=== PATIENT | female | born 1955 | race Caucasian/White ===

== ENCOUNTER → 2018-10-02 16:08 | Outpatient (CLI) | payer OTHER, SELFPAY ==
--- NOTE | 2018-10-02 | DI.CT.S_ITS ---
PROCEDURE: CT LUMBAR SPINE WO CON INDICATIONS: SPINAL STENOSIS OF THE LUMBAR REGION WITH NEUROGEN TECHNIQUE: Noncontrast 3 mm thick sections acquired from the T12 level to the sacrum. Sagittal and coronal reformats were constructed. For radiation dose reduction, the following was used: automated exposure control. COMPARISON: None. FINDINGS: Image quality: Excellent. Bones: There is mild levoscoliosis centered at L2-3 level. No acute vertebral body compression fractures. Vertebral body heights are well-preserved. Decreased intervertebral disc space and degenerative endplate changes are noted throughout lumbar spine. No suspicious lytic or blastic bony lesions. Central spinal caliber is of normal overall caliber. No pars defects. T12-L1: Unremarkable. L1-L2: Significant decreased intervertebral disc space is seen with prominent anterior and dorsal osteophyte formation. There is suggestion of diffuse disc bulge and bilateral facet arthrosis with mild central canal stenosis, no significant neuroforaminal narrowing. L2-L3: Diffuse disc bulge and bilateral facet arthrosis is seen with mild central canal stenosis, no significant neural foramina narrowing. L3-L4: Broad-based disc bulge and bilateral facet arthrosis is seen with mild to moderate central canal stenosis and mild bilateral neuroforaminal narrowing. L4-L5: There is broad-based disc bulge and bilateral facet arthrosis with hypertrophy of ligamentum flavum causing moderate to severe central canal stenosis and left worst than right bilateral neuroforaminal narrowing. L5-S1: There is broad-based disc bulge and bilateral facet arthrosis with mild central canal stenosis and right sided neuroforaminal narrowing. Soft tissues: No retroperitoneal masses or hematomas. Visualized aorta is normal in caliber. IMPRESSION: 1. Mild levoscoliosis centered at L2-3 level. No compression fracture or spondylolisthesis. No suspicious bony lesion. 2. Degenerative disc bulge and bilateral facet arthrosis throughout lumbar spine causing [id number] central canal stenosis and bilateral neuroforaminal narrowing most prominent at L4-5 level as described above. Dictated by: Marek Mccrary M.D. on 10/02/2018 at 16:58 Approved by: Marek Mccrary M.D. on 10/02/2018 at 17:02
== END ==
PROVIDERS: PCP Family Medicine; Visit Provider Orthopaedic Surgery
DX: M48.062 Spinal stenosis, lumbar region with neurogenic claudication (principal); M41.86 Other forms of scoliosis, lumbar region; M51.36 Other intervertebral disc degeneration, lumbar region; M48.07 Spinal stenosis, lumbosacral region; M47.816 Spondylosis without myelopathy or radiculopathy, lumbar region; M47.817 Spondylosis without myelopathy or radiculopathy, lumbosacral region
CPT/HCPCS: 72131

== ENCOUNTER → 2022-01-01 11:24 | Outpatient (CLI) | payer OTHER, SELFPAY ==
[2022-01-01 12:25] LABS: COVID19 -Nasal RAPID Negative (Negative)
== END ==
PROVIDERS: PCP Family Medicine; Visit Provider Family Medicine Sleep Medicine
DX: Z20.822 Contact with and (suspected) exposure to COVID-19 (principal)
CPT/HCPCS: 87635; C9803

== ENCOUNTER 2022-01-04 06:32 | Day surgery (SDC) | payer OTHER, SELFPAY ==
[2022-01-04 07:06] VITALS: BP 132/80; PULSE 66; RESP 16; TEMP 36.9; O2SAT 96; BMI 28.8
[2022-01-04] MEDS: SODIUM CHLORIDE 0.9% 1,000 ML 84 ML IV (07:38)
--- NOTE | 2022-01-04 07:56 | PM.HP.1 ---
History of Present Illness History of Present Illness Date Patient Seen: 01/04/22 Time Patient Seen: 07:56 Chief complaint: SDC Narrative: I reviewed my recent office note. No changes. Patient History Medical History Atrial fibrillation and flutter Melanoma Pacemaker Surgical History H/O: hysterectomy Hx of lymph node biopsy Family & Social History Social History: household members spouse Tobacco & Substance use: Smoking Status Never smoker alcohol intake current alcohol intake frequency a few times a month Substance Use Type does not use Meds Home Medications and Allergies Home Medications Medication Instructions Recorded Confirmed Type diltiazem HCl 180 mg 180 mg PO DAILY 01/01/22 01/04/22 History capsule,extended release 24 hr flecainide 100 mg tablet 100 mg PO BID 01/01/22 01/04/22 History fluoxetine 10 mg capsule 20 mg PO DAILY 01/01/22 01/04/22 History rivaroxaban 20 mg tablet (Xarelto) 20 mg PO DAILY 01/01/22 01/04/22 History simvastatin 20 mg tablet 20 mg PO DAILY 01/01/22 01/04/22 History Allergies Allergy/AdvReac Type Severity Reaction Status Date / Time No Known Drug Allergies Allergy Verified 01/04/22 07:00 Review of Systems Review of Systems ROS: Yes All systems reviewed with the patient and are negative except as otherwise documented Exam Vital Signs (past 8 hours): - 01/04/22 07:06 Temperature 98.5 F Pulse Rate 66 Respiratory Rate 16 Blood Pressure 132/80 Pulse Oximetry 96 Oxygen Delivery Method Room Air Const General: cooperative and comfortable Orientation: alert HENDE Head: normocephalic Ears: external ears normal Nose: external nose normal Face and sinus: normal facial exam Mouth: oral mucosae normal Eyes General: appearance normal, both eyes and all related structures Neck Neck: normal visual inspection Chest Chest: normal inspection of the chest Resp Effort & Inspection: normal respiratory effort Cardio Rate: regular rate GI Inspection: normal to inspection Skin General: no rashes or lesions noted and No jaundice Neuro General: patient alert and moves all extremities Cognition: normal cognition Speech: speech normal Extrem General: no pedal edema Psych Appearance: grossly normal Assessment & Plan Assessment & Plan narrative: 66-year-old female the personal history of colon polyps. She has been off her Xarelto for 5-6 days. Colonoscopy is planned for today. Time Spent With Patient Critical Care time: I spent a total of [] minutes of critical care time on this patient's care today; this time is exclusive of procedural time.
--- NOTE | 2022-01-04 07:57 | PM.PREOP ---
Pre-operative Note COVID-19 COVID-19 status: Negative Result date/Date tested (Pos, Neg/Pending): 01/01/22 Criteria for continued procedure: Possibility delay results in more complex future surgery or treatment Interval Note History & Physical reviewed/Exam performed by Physician: Yes Changes to H&P: No ASA Class (for procedural sedation): II
--- NOTE | 2022-01-04 08:11 | SUR.OPER ---
CECUM AT 0809
--- NOTE | 2022-01-04 08:19 | PM.OP.COLON ---
Operative Date/Time/Diagnoses Date of procedure: 01/04/22 Time of procedure: 08:19 Pre-op diagnosis: Personal history of colon polyps Post-op diagnosis: same Procedure & Clinicians Study performed: Colonoscopy Same procedure as scheduled: Yes Indications: Colon polyps history Surgeon: Gabriel Escamilla Procedure Notes SCOAP/Timeout: Done Procedure in detail: After the risks and benefits were explained, written and verbal informed consent was obtained. The patient was brought into the procedure room and placed into the left lateral decubitus position. Please see nurse glass lathe operator notes for sedation details. Digital rectal examination was accomplished. The scope was introduced into the patient and advanced under direct visualization to the cecum as identified by the appendiceal orifice and ileocecal valve. The scope was slowly withdrawn to carefully examine the mucosa for any defects or lesions. Comprehensive imaging was accomplished throughout the rectum including the dentate line. The colon was decompressed, the scope was then removed from the patient who tolerated the procedure well. Pediatric colonoscope Bowel prep adequate Scope withdrawal time: 9 minutes Sedation minutes: 20 Specimen(s): none sent Complications: none Impression: Mild scant diverticulosis was noted in the sigmoid. Grade 1 internal hemorrhoids were noted. No significant polyps mass lesions or inflammatory features identified throughout. Endoscopic diagnosis 1. Diverticulosis 2. Grade 1 hemorrhoids Post-procedure Plan for aftercare: Repeat colonoscopy in 5-7 years considering personal history of colon polyps. Disposition: PACU
[2022-01-04 08:22] VITALS: BP 99/64; PULSE 61; RESP 16; TEMP 36.6; O2SAT 98
[2022-01-04 08:27] VITALS: BP 106/62; PULSE 60; RESP 16; O2SAT 98
[2022-01-04 08:32] VITALS: BP 109/63; PULSE 60; RESP 16; O2SAT 96
[2022-01-04 08:38] VITALS: BP 99/65; PULSE 62; RESP 18; TEMP 36.4; O2SAT 99
== END 2022-01-04 08:49 | disposition home or self-care (01) ==
PROVIDERS: PCP Family Medicine; Referring Provider Internal Medicine Gastroenterology; Visit Provider Internal Medicine Gastroenterology
PROC: 0DJD8ZZ Inspection of Lower Intestinal Tract, Via Natural or Artificial Opening Endoscopic (ICD-10-PCS; CPT 45378; principal; 2022-01-04 08:00)
DX: Z12.11 Encounter for screening for malignant neoplasm of colon (principal); Z86.010 Personal history of colon polyps; Z95.0 Presence of cardiac pacemaker; I48.91 Unspecified atrial fibrillation; K64.0 First degree hemorrhoids; K57.30 Diverticulosis of large intestine without perforation or abscess without bleeding
CPT/HCPCS: 45378; J2704

== ENCOUNTER → 2022-11-09 09:20 | Outpatient (CLI) | payer OTHER, SELFPAY ==
[2022-11-09 10:49] LABS: BUN Creatinine Ratio 12.2 (6-22); Blood Urea Nitrogen 9 mg/dL (7-17); Calcium 8.9 mg/dL (8.4-10.2); Carbon Dioxide 30 mmol/L (22-32); Chloride 100 mmol/L (98-107); Estimated Glomerular Filt Rate > 60 mL/min (>60); Glucose 87 mg/dL (80-110); HEMOLYSIS < 15 (0-50); Magnesium 2.2 mg/dL (1.6-2.3); Potassium 4.6 mmol/L (3.4-5.1); Sodium 137 mmol/L (137-145)
[2022-11-09 11:16] LABS: Thyroid Stimulating Hormone 1.59 uIU/mL (0.47-4.68)
[2022-11-10 21:44] LABS: Tissue Transglutaminase IgA <2 U/mL (0-3); Tissue Transglutaminase IgG 5 U/mL (0-5)
== END ==
PROVIDERS: PCP Family Medicine; Referring Provider Internal Medicine Gastroenterology; Visit Provider Internal Medicine Gastroenterology
DX: K59.00 Constipation, unspecified (principal)
CPT/HCPCS: 36415; 80048; 83516; 83735; 84443

== ENCOUNTER 2023-05-04 20:45 | Emergency (ER) | payer OTHER, SELFPAY ==
[2023-05-04] VITALS (8 sets, daily range): BP systolic 124–143; BP diastolic 73–84; PULSE 59–67; RESP 18; TEMP 36.3; O2SAT 95–99; BMI 29.7
--- NOTE | 2023-05-04 21:07 | DI.CT.S_ITS ---
PROCEDURE: CT HEAD/BRAIN WO CON INDICATIONS: fall with injury, on thinners, pain in right ribs TECHNIQUE: Noncontrast 4.5 mm thick angled axial sections acquired from the foramen magnum to the vertex, with coronal and sagittal reformats. For radiation dose reduction, the following was used: automated exposure control, adjustment of mA and/or kV according to patient size. COMPARISON: None. FINDINGS: Image quality: Excellent. CSF spaces: Basal cisterns are patent. No extra-axial fluid collections. Ventricles are normal in size and shape. Brain: No intracranial hemorrhage, mass, or mass effect. Slade-white matter interface appears preserved. Skull and face: Calvarium and visualized facial bones are intact, without suspicious lesions. Sinuses: Visualized sinuses and mastoids are clear. IMPRESSION: 1. No acute intracranial abnormality. Dictated by: Bhavin Ruvalcaba M.D. on 05/04/2023 at 21:57 Approved by: Bhavin Ruvalcaba M.D. on 05/04/2023 at 22:00
--- NOTE | 2023-05-04 21:07 | DI.CT.S_ITS ---
PROCEDURE: CT CERVICAL SPINE WO CON INDICATIONS: fall with injury, in thinners, pain in right ribs TECHNIQUE: Noncontrast 3 mm thick sections acquired from the skull base to the T4 level. Sagittal and coronal reformats were then constructed. For radiation dose reduction, the following was used: automated exposure control, adjustment of mA and/or kV according to patient size. COMPARISON: None. FINDINGS: Image quality: Excellent. Bones: No fractures or subluxation. There is straightening of the cervical lordosis. There is minimal anterolisthesis at C3-C4 and C4-C5. Multilevel degenerative disc disease is present including severe degeneration at C5-C6. Multilevel facet joint arthropathy also demonstrated throughout the cervical spine. Visualized superior ribs are intact. Soft tissues: Prevertebral soft tissues are normal in thickness. No paravertebral hematomas. No apical pneumothoraces. IMPRESSION: 1. No acute fracture or subluxation. Dictated by: Bhavin Ruvalcaba M.D. on 05/04/2023 at 22:00 Approved by: Bhavin Ruvalcaba M.D. on 05/04/2023 at 22:02
--- NOTE | 2023-05-04 21:17 | DI.RAD.S_ITS ---
PROCEDURE: XR RIBS RT MIN 3V W CXR 1V INDICATIONS: fall pain TECHNIQUE: Two views of the right ribs were acquired, along with a single view chest. COMPARISON: [facility], CR, XR CHEST 2 VIEWS, 06/11/2020, 7:03. [facility], CT, CT CHEST ABDOMEN PELVIS WITH CONTRAST, 04/15/2022, 16:07. FINDINGS: Surgical changes and devices: There is a left chest wall dual lead pacemaker. Bones and chest wall: No displaced rib fracture identified. No suspicious bony lesions. Overlying soft tissues appear unremarkable. Lungs and pleura: No pleural effusions or pneumothorax. Lungs appear clear. Mediastinum: Mediastinal contours appear normal. Heart size is normal. IMPRESSION: 1. No displaced rib fracture identified. Dictated by: Bhavin Ruvalcaba M.D. on 05/04/2023 at 22:30 Approved by: Bhavin Ruvalcaba M.D. on 05/04/2023 at 22:31
--- NOTE | 2023-05-04 23:36 | ED.FALL ---
HPI - Fall General Chief Complaint: Fall Stated Complaint: GLF Time Seen by Provider: 05/04/23 21:17 Source: patient, family and EMS Mode of arrival: EMS History of Present Illness HPI Narrative: Patient 67-year-old female history of atrial fibrillation on Xarelto with pacemaker [place]. She admits to drinking alcohol tonight she reports that she tripped over cone. She does not remember exactly what happened but her saw it. He reports no loss of consciousness she denies any nausea or vomiting. She does have a laceration on the right forehead. No numbness tingling or weakness. She is complaining of some right-sided rib pain hurts whenever she moves or breathes Related Data Home Medications Medication Instructions Recorded Confirmed diltiazem HCl 180 mg 180 mg PO DAILY 01/01/22 01/04/22 capsule,extended release 24 hr flecainide 100 mg tablet 100 mg PO BID 01/01/22 01/04/22 fluoxetine 10 mg capsule 20 mg PO DAILY 01/01/22 01/04/22 rivaroxaban 20 mg tablet (Xarelto) 20 mg PO DAILY 01/01/22 01/04/22 simvastatin 20 mg tablet 20 mg PO DAILY 01/01/22 01/04/22 Allergies Allergy/AdvReac Type Severity Reaction Status Date / Time No Known Drug Allergies Allergy Verified 01/04/22 08:27 Review of Systems Review of Systems ROS Unobtainable: All systems reviewed & are unremarkable except as noted in HPI and below Patient History Medical History Atrial fibrillation and flutter Melanoma Pacemaker Surgical History H/O: hysterectomy Hx of lymph node biopsy Social History household members: spouse Smoking Status: Never smoker alcohol intake: current Smoking Status: Never smoker alcohol intake frequency: a few times a month Substance Use Type: does not use Exam Initial Vital Signs Initial Vital Signs: Vital Signs Pulse Rate 60 05/04/23 20:53 Pulse Oximetry 96 05/04/23 20:53 GENERAL: Pleasant 67-year-old female and in no acute distress. HEENT: Head right forehead lacerations swelling,EOMI, pupils reactive, face symmetric, moist mucous membranes CARDIOVASCULAR: Regular rate and rhythm without murmurs, rubs or gallops. RESPIRATORY: Breath sounds equal bilaterally, no wheezes rales or rhonchi. No paradoxical movement no sign of trauma no contusion ABDOMEN: Soft, nontender. Normoactive bowel sounds all 4 quadrants. No guarding or rebound. EXTREMITIES: Normal range of motion, no clubbing or edema. Neurovascularly intact NEUROLOGICAL: Alert and oriented x4.Normal gait and speech. Cranial nerves II through XII grossly intact. SKIN: Warm, dry, no laceration, no petechiae, no rashes or lesions. Procedures Laceration Repair Laceration 1: Site: scalp Side (If applicable): right Size (cm): 3 Description: stellate Depth: simple, single layer Local Anesthetic: lidocaine 1% Amount of anesthesia used (mL): 4 Pre-repair: wound explored, irrigated extensively and deep structures intact Skin layer closed with: nylon Skin layer suture size: 4-0 Number of sutures: 3 Technique: simple, interrupted Course Orders Ordered: ED Orders 05/04/23 21:07 CT cervical spine wo con Stat CT head/brain wo con Stat 05/04/23 21:17 XR ribs RT min 3V w CXR1V Stat Discontinued Medications Bacitracin (Bacitracin Oint 0.9 Gm Pckt) 1 applic TOP NOW ONE Stop: 05/05/23 00:26 Last Admin: 05/05/23 00:27 Dose: 1 applic Documented By: SHEFALI Lidocaine HCl (Lidocaine 1% (Pf) 5 Ml) 5 ml INJ NOW ONE Stop: 05/04/23 23:44 Last Admin: 05/04/23 23:46 Dose: 5 ml Documented By: SHEFALI Vital Signs Vital signs: Vital Signs - 8 hr 05/04/23 21:43 05/04/23 21:46 05/04/23 21:46 Pulse Rate 60 59 L Respiratory Rate Blood Pressure 138/84 Pulse Oximetry 95 97 05/04/23 22:00 05/04/23 22:00 05/04/23 22:30 Pulse Rate 60 Respiratory Rate Blood Pressure 133/83 143/76 H Pulse Oximetry 97 05/04/23 22:30 05/04/23 23:00 05/04/23 23:00 Pulse Rate 61 62 Respiratory Rate Blood Pressure 135/76 Pulse Oximetry 97 99 05/04/23 23:30 05/04/23 23:30 05/05/23 00:00 Pulse Rate 67 Respiratory Rate Blood Pressure 124/73 133/67 Pulse Oximetry 97 05/05/23 00:00 Pulse Rate 66 Respiratory Rate 18 Blood Pressure Pulse Oximetry 98 MDM - Fall Imaging Data CT scan - head: Radiologist's Impression: PROCEDURE:? CT HEAD/BRAIN WO CON ? INDICATIONS:? fall with injury, on thinners, pain in right ribs ? TECHNIQUE:? Noncontrast 4.5 mm thick angled axial sections acquired from the foramen magnum to the vertex, with coronal and sagittal reformats.? For radiation dose reduction, the following was used:? automated exposure control, adjustment of mA and/or kV according to patient size.? ? COMPARISON:? None. ? FINDINGS:? Image quality:? Excellent.? ? CSF spaces:? Basal cisterns are patent.? No extra-axial fluid collections.? Ventricles are normal in size and shape.? ? Brain:? No intracranial hemorrhage, mass, or mass effect.? Slade-white matter interface appears preserved.? ? Skull and face:? Calvarium and visualized facial bones are intact, without suspicious lesions.? ? Sinuses:? Visualized sinuses and mastoids are clear.? ? IMPRESSION:? ? 1. No acute intracranial abnormality.? ? ? Dictated by: Bhavin Ruvalcaba M.D. on 05/04/2023 at 21:57 ? ? Approved by: Bhavin Ruvalcaba M.D. on 05/04/2023 at 22:00? CT - cervical spine: Radiologist's Impression: PROCEDURE:? CT CERVICAL SPINE WO CON ? INDICATIONS:? fall with injury, in thinners, pain in right ribs ? TECHNIQUE:? Noncontrast 3 mm thick sections acquired from the skull base to the T4 level.? Sagittal and coronal reformats were then constructed.? For radiation dose reduction, the following was used:? automated exposure control, adjustment of mA and/or kV according to patient size.? ? COMPARISON:? None. ? FINDINGS:? Image quality:? Excellent.? ? Bones:? No fractures or subluxation.? There is straightening of the cervical lordosis.? There is minimal anterolisthesis at C3-C4 and C4-C5.? Multilevel degenerative disc disease is present including severe degeneration at C5-C6.? Multilevel facet joint arthropathy also demonstrated throughout the cervical spine.? Visualized superior ribs are intact.? ? Soft tissues:? Prevertebral soft tissues are normal in thickness.? No paravertebral hematomas.? No apical pneumothoraces.? ? ? IMPRESSION:? ? 1. No acute fracture or subluxation.? ? Dictated by: Bhavin Ruvalcaba M.D. on 05/04/2023 at 22:00 ? ? Chest x-ray: Radiologist's Impression: PROCEDURE:? XR RIBS RT MIN 3V W CXR 1V ? INDICATIONS:? fall pain ? TECHNIQUE:? Two views of the right ribs were acquired, along with a single view chest.? ? COMPARISON:? [facility], CR, XR CHEST 2 VIEWS, 06/11/2020, 7:03.? [facility], CT, CT CHEST ABDOMEN PELVIS WITH CONTRAST, 04/15/2022, 16:07. ? FINDINGS:? ? Surgical changes and devices:? There is a left chest wall dual lead pacemaker.? ? Bones and chest wall:? No displaced rib fracture identified.? No suspicious bony lesions. ?Overlying soft tissues appear unremarkable.? ? Lungs and pleura:? No pleural effusions or pneumothorax.? Lungs appear clear.? ? Mediastinum:? Mediastinal contours appear normal.? Heart size is normal.? ? IMPRESSION:? ? 1. No displaced rib fracture identified.? ? ? Dictated by: Bhavin Ruvalcaba M.D. on 05/04/2023 at 22:30 ? ? [facility] Narrative Medical decision making narrative: Patient is 67-year-old female history of atrial fibrillation on Xarelto and pacemaker presents today after mechanical fall after drinking walking in the [place]. She fell and hit her head she is an obvious laceration and injury to her right forehead. Head CT and CT neck are both negative. He is neurovascularly intact without evidence of intracranial hemorrhage. Laceration is easily repaired in sutured. She does have pain in the right rib x-ray is negative for fracture however with the amount of pain she is in a wound be surprised. She is offered pain medication but states it Tylenol will be fine. Discharge Plan Departure Patient Disposition: Home Clinical Impression: Forehead laceration, Contusion of rib on right side Instructions: DI for Laceration Repair, DI for Rib Contusion Activity Restrictions/Additional Instructions: *You have been diagnosed with forehead laceration, rib contusion *What to do: At this time please have your sutures removed in about 5-7 days with your PCP or walk-in clinic or the ED. You may wash face and keep clean with soap and water. Apply antibiotic ointment 1-2 times daily. May apply ice 30 minutes at a time if needed. Ribs will be sore can be sore for to a couple of weeks. No fracture is seen on the x-ray. However you might have a minor 1. Use a pillow or blanket to help splint for pain. *Continue to take medications as directed Tylenol 1000 mg every 6 hours if needed for fyng-ki-gjeokmns pain *Follow up with your primary care provider in 2-3 days or call [phone] *Return to ER if you should have increasing pain shortness of breath redness swelling over suture or any new, worsening or concerning symptoms Prescriptions: No Action diltiazem HCl 180 mg capsule,extended release 24hr 180 mg PO DAILY simvastatin 20 mg tablet 20 mg PO DAILY Patient Comments: take 1 tablet by mouth once daily flecainide 100 mg tablet 100 mg PO BID Patient Comments: take 1 tablet by mouth every 12 hours fluoxetine 10 mg capsule 20 mg PO DAILY Patient Comments: take 1 to 2 capsules by mouth once daily Xarelto 20 mg tablet 20 mg PO DAILY Patient Comments: take 1 tablet by mouth once daily Referrals: Ileana Dsouza MD [Primary Care Provider] - Stand Alone Forms: Patient Portal/API
[2023-05-04] MEDS: LIDOCAINE 1% (PF) 5 ML INJ (23:46)
[2023-05-05] VITALS: BP 133/67; PULSE 66; RESP 18; O2SAT 98
[2023-05-05] MEDS: BACITRACIN OINT 0.9 GM PCKT 1 APPLIC TOP (00:27)
== END 2023-05-05 00:37 | disposition home or self-care (01) ==
PROVIDERS: Emergency Provider Emergency Medicine; PCP Family Medicine
DX: S01.81XA Laceration without foreign body of other part of head, initial encounter (principal); S20.211A Contusion of right front wall of thorax, initial encounter; Z95.0 Presence of cardiac pacemaker; Z79.01 Long term (current) use of anticoagulants; W18.30XA Fall on same level, unspecified, initial encounter
CPT/HCPCS: 12002; 70450; 71101; 72125; 99284

== ENCOUNTER → 2024-01-19 11:19 | Outpatient (CLI) | payer OTHER, SELFPAY ==
--- NOTE | 2024-01-19 11:21 | DI.MG.S_ITS ---
BILATERAL DIGITAL SCREENING MAMMOGRAM 3D/2D WITH CAD: 01/19/2024 CLINICAL: Routine screening. Comparison is made to exams dated: 03/15/2022 mammogram, 02/11/2021 mammogram, and 12/03/2019 mammogram - [facility]. There are scattered areas of fibroglandular density in both breasts (category b / 25%-50% glandular tissue). Current study was also evaluated with a Computer Aided Detection (CAD) system. No significant masses, calcifications, or other findings are seen in either breast. There has been no significant interval change. IMPRESSION: NEGATIVE There is no mammographic evidence of malignancy. A 1 year screening mammogram is recommended. Based on the Tyrer Cuzick model (a risk assessment model) the patient's lifetime risk is 6.3% and her 10 year risk is 3.3%. According to the ACR, ACS, and NCCN guidelines, an annual breast MRI exam along with mammogram is recommended if the patient's lifetime risk is 20% or greater. This exam was interpreted at Station ID: [id number]. NOTE: For mammograms, a report in lay terms will be sent to the patient. Approximately 15% of breast malignancies will not be visualized mammographically. In the management of a palpable breast mass, a negative mammogram must not discourage biopsy of a clinically suspicious lesion. Electronically Signed By: Sameer jackson/sudhir:01/19/2024 13:44:09 letter sent: Normal Exam ACR BI-RADS Category 1: Negative [id number]
== END ==
PROVIDERS: PCP Family Medicine; Referring Provider Family Medicine; Visit Provider Family Medicine
DX: Z12.31 Encounter for screening mammogram for malignant neoplasm of breast (principal); R92.323 Mammographic fibroglandular density, bilateral breasts
CPT/HCPCS: 77063; 77067

== ENCOUNTER → 2024-01-19 12:25 | Outpatient (CLI) | payer OTHER, SELFPAY ==
[2024-01-19 12:57] LABS: Add Manual Diff / Slide Review NO; Basophils Absolute Auto 100 /uL (0-100); Basophils Percent Auto 0.7 % (0-2); Eosinophils Absolute Auto 100 /uL (0-450); Eosinophils Percent Auto 1.1 % (2-4); Hematocrit 40.7 % (36-46); Hemoglobin 13.5 g/dL (12.0-16.0); Lymphocytes Absolute Auto 2700 /uL (1100-4500); Lymphocytes Percent Auto 32.4 % (25-40); Mean Corpuscular HGB Conc 33.2 % (30-36); Mean Corpuscular Hemoglobin 31.7 PG (26-34); Mean Corpuscular Volume 95.6 fL (80-100); Monocytes Absolute Auto 600 /uL (0-900); Monocytes Percent Auto 6.8 % (3-14); Neutrophils Absolute Auto 4800 /uL (1500-7000); Platelet Count 276 X10^3/uL (150-400); Red Blood Cell Count 4.26 X10^6/uL (4.0-5.2); Red Cell Distribution Width 14.4 % (11.6-14.8); White Blood Cell Count 8.2 X10^3/uL (4.5-11.0)
== END ==
LOC: LAB 12:27
PROVIDERS: PCP Family Medicine; Referring Provider Nurse Practitioner Gerontology; Visit Provider Nurse Practitioner Gerontology
DX: C43.9 Malignant melanoma of skin, unspecified (principal)
CPT/HCPCS: 36415; 85025